=== PATIENT | male | born 1945 | race Caucasian/White ===

== ENCOUNTER 2018-04-28 10:44 | Emergency (ER) | payer MEDICARE ==
[2018-04-28 11:48] VITALS: BP 167/86
--- NOTE | 2018-04-28 12:25 | UC ---
Knee Pain HPI - HPI Summary HPI Summary: patient has initial knee injury a few weeks ago, since then he has developed left leg pain and bilateral hip pain, he is still able to function but sometimes shooting pain form right hip to knee. - History of Current Complaint Chief Complaint: UCLowerExtremity Stated Complaint: BILATERAL LEG PAIN Time Seen by Provider: 04/28/18 11:30 Hx Obtained From: Patient Onset/Duration: Sudden Onset, Lasting Weeks Severity Initially: Moderate Severity Currently: Moderate Pain Intensity: 6 Character: Dull, Aching Aggravating Factor(s): Movement, Weight Bearing, Prolonged Standing, Stairs Associated Signs And Symptoms: Positive: Swelling - Allergies/Home Medications Allergies/Adverse Reactions: Allergies Allergy/AdvReac Type Severity Reaction Status Date / Time ibuprofen Allergy Eyes Verified 04/28/18 11:49 Itchy/Swollen/Red/Watery Home Medications: Home Medications See Med List 04/28/18 [History] PMH/Surg Hx/FS Hx/Imm Hx Previously Healthy: Yes - Surgical History Surgical History: Yes Surgery Procedure, Year, and Place: CABG, appy - Family History Known Family History: Negative: Cardiac Disease, Hypertension - Social History Alcohol Use: None Substance Use Type: None Smoking Status (MU): Never Smoked Tobacco Review of Systems Constitutional: Negative Skin: Negative Eyes: Negative ENT: Negative Respiratory: Negative Cardiovascular: Negative Gastrointestinal: Negative Genitourinary: Negative Motor: Negative Neurovascular: Negative Musculoskeletal: Arthralgia, Edema, Myalgia Neurological: Negative, Headache Is Patient Immunocompromised?: No All Other Systems Reviewed And Are Negative: Yes Physical Exam Triage Information Reviewed: Yes Appearance: Well-Appearing, Well-Nourished, Pain Distress Vital Signs: Initial Vital Signs Temp 97.3 F 04/28/18 11:23 Pulse 63 04/28/18 11:23 Resp 24 04/28/18 11:23 BP 167/86 04/28/18 11:23 Pulse Ox 97 04/28/18 11:23 Vital Signs Reviewed: Yes Eye Exam: Normal ENT Exam: Normal Neck exam: Normal Respiratory Exam: Normal Cardiovascular Exam: Normal Abdominal Exam: Normal Abdomen Description: Positive: Nontender, No Organomegaly, Soft Musculoskeletal Exam: Normal Musculoskeletal: Positive: ROM Intact, Strength Limited @ - in left leg, Edema @ - on medial aspect of left knee, Other: - + mccurrays on right joint line - varus and valgus stress - ant drawer test Neurological Exam: Normal Psychological Exam: Normal Skin Exam: Normal Knee Pain Course/Dx - Course Course Of Treatment: hx obtained, exam performed ,meds reviewed, educated on knee pain and pain form compensation. went over treatement and activity - Differential Dx/Diagnosis Differential Diagnosis/HQI/PQRI: Internal Derangement Of Knee, Patellofemoral Syndrome, Sprain, Strain, Tendonitis Provider Diagnoses: left knee pain. bilateral hip pain Discharge - Sign-Out/Discharge Documenting (check all that apply): Discharge/Admit/Transfer - Discharge Plan Condition: Stable Disposition: HOME Patient Education Materials: Knee Pain (ED) Referrals: Percy Hill MD [Primary Care Provider] - Gibran Hamm [Physical Therapist] - Additional Instructions: 1. Rest when you feel pain 2. Use the Scar wrap and brace to reduce the swelling and provide more stability with movement 3. Use heat and ice for pain and swelling 4. Take tylenol for pain 1000 mg every 8 hours 5. Elevate the leg at rest. 6. I am giving recommendations for massage therapy and PT referral if needed. Nereyda Zapata, Licensed Massage Therapist [address] [facility] [address] [place] [address] [place] [address] - Billing Disposition and Condition Condition: STABLE Disposition: HOME
== END 2018-04-28 12:33 | disposition home or self-care (01) ==
LOC: UCCORT 10:44
DX: M25.562 Pain in left knee (principal); M25.552 Pain in left hip; M25.551 Pain in right hip; Z88.6 Allergy status to analgesic agent; Z95.1 Presence of aortocoronary bypass graft
CPT/HCPCS: 99201; G0463

== ENCOUNTER 2024-11-16 09:07 | Observation (INO) ==
[2024-11-16] MEDS ORDERED: Dextrose 50% Syringe 50 ml 25 GM/50 ML SYRINGE IV PUSH PRN (11:46)
[2024-11-16] MEDS: Carbidopa/Levodop 25/100 MG TAB PO SCH (13:15)
[2024-11-16 13:27] LABS: ABS Eosinophils 0.1 10^3/uL (0.0-0.5); ABS Lymphocytes 1.5 10^3/uL (1.0-4.8); ABS Monocytes 0.6 10^3/uL (0.0-1.1); ABS Neutrophils 5.8 10^3/uL (1.5-7.6); ABS Nucleated RBC 0.01 10^3/ul; Eosinophil % 1.1 %; Hemoglobin 9.2 g/dL (13.2-16.3); Lymphocyte % 18.4 %; Mean Corpuscular Hemoglobin 27.3 pg (27-33); Mean Corpuscular Hgb Conc 34.1 g/dL (31-36); Mean Platelet Volume 8.9 fL (7.5-11.2); Nucleated Red Blood Cells % 0.1 %/100WBC (0.0-0.8); Platelet Count 186 10^3/uL (150-450); Red Blood Count 3.38 10^6/uL (4.06-5.63); Red Cell Distribution Width 15.9 % (12-17)
[2024-11-16 13:33] LABS: INR 1.12 (0.85-1.14)
[2024-11-16 14:13] LABS: Calcium 8.7 mg/dL (8.6-10.3); Creatinine, Serum 1.17 mg/dL (0.67-1.17); Potassium 3.7 mmol/L (3.5-5.0); eGFR CKD-EPI 62.6 (>60)
[2024-11-16 22:22] LABS: Hemoglobin 8.7 g/dL (13.2-16.3)
[2024-11-17 06:24] LABS: ABS Eosinophils 0.2 10^3/uL (0.0-0.5); ABS Lymphocytes 1.8 10^3/uL (1.0-4.8); ABS Monocytes 0.6 10^3/uL (0.0-1.1); ABS Neutrophils 4.8 10^3/uL (1.5-7.6); Eosinophil % 2.3 %; Hematocrit 28.5 % (38-53); Hemoglobin 9.4 g/dL (13.2-16.3); Lymphocyte % 24.2 %; Mean Corpuscular Hemoglobin 26.5 pg (27-33); Mean Corpuscular Volume 80.4 fL (80-97); Mean Platelet Volume 9.4 fL (7.5-11.2); Platelet Count 177 10^3/uL (150-450); Red Blood Count 3.54 10^6/uL (4.06-5.63); Red Cell Distribution Width 15.7 % (12-17); White Blood Count 7.4 10^3/uL (3.6-10.2)
[2024-11-17 06:41] LABS: Calcium 8.6 mg/dL (8.6-10.3); Creatinine, Serum 1.09 mg/dL (0.67-1.17); Magnesium 1.9 mg/dL (1.9-2.7); Potassium 4.1 mmol/L (3.5-5.0); eGFR CKD-EPI 68.2 (>60)
[2024-11-17] MEDS: MAGNESIUM CITRATE 100 MG PO SCH (09:14)
[2024-11-17 14:11] VITALS: BP 127/79
== END 2024-11-17 17:35 | disposition home or self-care (01) ==
LOC: SSU 11:10 → INTOOBSV 11:10
PROVIDERS: ADMIT Hospitalist; ATTEND Student in an Organized Health Care Education/Training Program